=== PATIENT | female | born 2000 | race Caucasian/White ===

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

== ENCOUNTER 2021-10-04 17:30 | Outpatient (REF) | payer OTHER, SELFPAY ==
[2021-10-04 21:33] LABS: TSH 15.72 uIU/mL (0.52-4.13)
== END 2021-10-04 17:31 | disposition home or self-care (01) ==
LOC: NCHCN 17:30
PROVIDERS: PCP Family Medicine; Visit Provider Family Medicine
DX: E03.9 Hypothyroidism, unspecified (principal)
CPT/HCPCS: 84443

== ENCOUNTER 2022-11-30 16:23 | Outpatient (REF) | payer BC, SELFPAY ==
[2022-11-30 15:07] LABS: TSH 0.02 uIU/mL (0.36-3.74)
== END 2022-11-30 16:24 | disposition home or self-care (01) ==
LOC: NCHCN 16:23
PROVIDERS: PCP Family Medicine; Visit Provider Family Medicine
DX: E03.9 Hypothyroidism, unspecified (principal)
CPT/HCPCS: 84443

== ENCOUNTER 2023-03-29 16:37 | Outpatient (REF) | payer BC, SELFPAY ==
[2023-03-29 22:32] LABS: Anion Gap 11.7 mmol/L (3-11); BUN 32 mg/dL (7-18); CO2 25.3 mmol/L (21.0-32.0); CREATININE 1.1 mg/dL (0.70-1.30); Calcium 9.4 mg/dL (8.5-10.1); Calculated LDL 80 mg/dL (<100); Chloride 105 mmol/L (98-107); Cholesterol 160 mg/dL (<200); Estimated GFR 97.95 (mL/min/1.73m2); Glucose 94 mg/dL (74-106); HDL Cholesterol 66 mg/dL (40-60); Potassium 4.3 mmol/L (3.5-5.1); Sodium 142 mmol/L (136-145); TSH 0.39 uIU/mL (0.36-3.74); Triglyceride 73 mg/dL (<150)
== END 2023-03-29 16:38 | disposition home or self-care (01) ==
LOC: NCHCN 16:37
PROVIDERS: PCP Family Medicine; Visit Provider Family Medicine
DX: E78.00 Pure hypercholesterolemia, unspecified (principal); E03.9 Hypothyroidism, unspecified
CPT/HCPCS: 80048; 80061; 84443

== ENCOUNTER 2024-05-23 17:00 | Outpatient (REF) | payer BC, SELFPAY ==
--- OUTSIDE RECORDS SUMMARY | 2024-05-23 17:07 | XMS_ITS | Clinical Summary ---
Author Organization [facility] [place] [address] Care Team Providers Care Director Of Events Name Role Phone Unknown Primary Care Provider Unavailabl e Allergies No known active allergies Medications Medication Sig Dispensed Refills Start Date End Date Status pediatric multivitamin chewable tablet Take 1 tablet by mouth daily. Active levothyroxine (SYNTHROID) 150 mcg TabletIndications:Acqui red hypothyroidism Take 1 tablet by mouth daily. 90 tablet 3 11/25/2018 Active Active Problems Problem Noted Date Diagnosed Date Acquired hypothyroidism 09/19/2015 Overview (09/19/2015): Detected 09/15. Brother and father also have hypothyroidism. Assessment & Plan (08/30/2018 5:27 PM EST): Israel appears euthyroid on exam and I suspect his current dose of levothyroxine is adequate. We'll check his TSH today and adjust his dose as needed. I'll continue to follow him on an annual basis. 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 He gained 1.5kg over the past 8 months, and 6.8cm. He is now at the 18th percentile for height, moving in the right direction, and fell to the 20th percentile for weight. Most recent TSH elevated at 20.11. Not having any symptoms of hypo or hyperthyroidism. Levothyroxine dose change from 75 to 88 mcg, taking it 7 days a week. Plan to recheck on new thyroid dose after another 4 weeks. Assessment & Plan (09/19/2015 1:50 PM EST): Israel likely developed his hypothyroidism relatively slowly as he appears well adapted. His growth curve does show crossing of percentiles which is likely a consequence of the hypothyroidism. 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 With TSH levels that high, some people become symptomatic if you correct the hypothyroidism too rapidly. I therefore recommended that he take 1/2 tablet (25 mcg) levothyroxine for the first 2 weeks then progress to 50 mcg daily. He should have a TSH checked locally in 8 weeks, and I provided a standing order for that. I suggested that Israel come to his brother's visit next time so that I can check in briefly, but we will not plan for a formal appointment. 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 . Elevated DHEA-S Assessment & Plan (09/19/2015 1:45 PM EST): Israel is at a normal pubertal stage, so his early adrenarche did result in early puberty. We cannot project his final adult height without performing a bone age, but he is on normal growth centiles which is reassuring. Assessment & Plan (03/20/2013 5:02 PM EDT): Israel is an 12 year 4/12 month old with premature adrenarche first occuring at age 9. The adrenarche is stable over the past year, though he is showing signs of going through puberty with testicular enlargement. He is not showing signs of growth acceleration on growth chart, but we should obtain a repeat bone age and make sure it is not advanced. If he does not show signs of advanced bone age, there is no reason he needs to follow up with endocrinology but we are happy to see him again should parents or PCP desire. Assessment & Plan (03/19/2012 6:14 PM EDT): While the adrenarche has progressed, Israel is not showing any signs of penile enlargement or growth acceleration. He is more pinto, but I do not think that is the result of puberty. We will check a bone age today to be sure there has not been a loss in his adult height potential. Provided that study is normal, then I think the current conservative course is appropriate. We will plan to see him again in 1 year. 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 I am concerned however that he is showing testicular enlargement consistent with true precocious puberty. The pattern of high DHEAS with normal 17 hydroxyprogesterone could be seen in one of the unusual forms of congenital adrenal hyperplasia such as 3 beta HSD deficiency. We plan to perform a Cortrosyn stimulation test with a CAH profile 6 pre and post. We also obtained a bone age to gauge the change in skeletal maturation. Family History Medical History Relation Comments Thyroid Disease Brother Hypothyroidism Diabetes Father High Blood Pressure Father High Cholesterol Father Thyroid Disease Father Hypothyroidism Coronary Artery Disease Maternal Grandfather Hearing Loss Maternal Grandfather Heart Disease Maternal Grandfather High Blood Pressure Maternal Grandfather High Cholesterol Maternal Grandfather Obesity Maternal Grandfather Hearing Loss Paternal Grandfather Relation Status Comments Brother Alive Father Alive Maternal Grandfather Alive Maternal Grandmother Alive Mother Alive Paternal Grandfather Alive Paternal Grandmother Alive Social History Tobacco Use Types Packs/Day Years Used Date Smoking Tobacco: Never Smokeless Tobacco: Never Comments:no one smokes in ho use Sex and Gender Information Value Date Recorded Sex Assigned at Not on file Gender Identity Not on file Sexual Orientation Not on file Last Filed Vital Signs Vital Sign Reading Time Taken Comments Blood Pressure 141/73 08/24/2018 11:26 AM EST Pulse 78 08/24/2018 11:26 AM EST Temperature - - Respiratory Rate 20 04/25/2016 8:20 AM EDT Oxygen Saturation - - Inhaled Oxygen Concentration - - Weight 63.2 kg (139 lb 5.3 oz) 08/24/2018 11:26 AM EST Height 173.7 cm (5' 8.39) 08/24/2018 11:[address] Body Mass Index 20.95 08/24/2018 11:26 AM EST Plan of Treatment Health Maintenance Due Date Last Done Comments HPV vaccine (1 - Male 3-dose series) 2016 HIV screen 2019 Hepatitis C Screening 2019 Hepatitis B vaccine (0-59 yrs) (1) 2020 Tdap adult 2020 Tetanus vaccine 2020 Covid-19 Vaccine (1 - 2022- season) 2023 Influenza (Flu) vaccine (1 o f 1 - Influenza standard series) 06/02/2024 Care Teams Director Of Events Relationship Specialty Start Date End Date Unknown None PCP - General 10/02/18
--- OUTSIDE RECORDS SUMMARY | 2024-05-23 17:07 | XMS_ITS | Encounter Summary ---
Author Organization [facility] Address [facility] [place] [address] Care Team Providers Care Tripoler Name Role Phone Unknown Primary Care Provider Unavailabl e Encounter Details Date Type Department Care Team (Latest Contact Info) Description 02/07/2020 Orders Only [place] [address] Tyson Vega MD [facility] DR PEDIATRIC [place] [address] Acquired hypothyroidism Social History Tobacco Use Types Packs/Day Years Used Date Smoking Tobacco: Never Smokeless Tobacco: Never Comments:no one smokes in ho use Sex and Gender Information Value Date Recorded Sex Assigned at Not on file Gender Identity Not on file Sexual Orientation Not on file documented as of this encounter Plan of Treatment Not on file documented as of this encounter Visit Diagnoses Diagnosis Acquired hypothyroidism Unspecified hypothyroidism documented in this encounter Care Teams Tripoler Relationship Specialty Start Date End Date Unknown None PCP - General 10/02/18 documented as of this encounter
--- OUTSIDE RECORDS SUMMARY | 2024-05-23 17:07 | XMS_ITS | Encounter Summary ---
Author Organization [facility] [place] [address] Care Team Providers Care Newspaper Writer Name Role Phone Raza Lazar MD Primary Care Provider [phone] Reason for Visit * Reason Onset Date Comments Medication Refill 01/06/2017 Encounter Details Date Type Department Care Team (Late st Contact Info) Description 01/06/2017 Refill [place] [address] Tyson Vega MD [facility] DR P[place] [address] Acquired hypothyroidism Social History Tobacco Use Types Packs/Day Years Used Date Smoking Tobacco: Never Comments:no one smokes in ho use Sex and Gender Information Value Date Recorded Sex Assigned at Not on file Gender Identity Not on file Sexual Orientation Not on file documented as of this encounter Plan of Treatment Not on file documented as of this encounter Visit Diagnoses Diagnosis Acquired hypothyroidism Unspecified hypothyroidism documented in this encounter Care Teams Newspaper Writer Relationship Specialty Start Date End Date Raza Lazar MD PCP - General 03/19/12 10/01/18 documented as of this encounter
--- OUTSIDE RECORDS SUMMARY | 2024-05-23 17:07 | XMS_ITS | Encounter Summary ---
Author Organization [facility] Address [facility] [place] [address] Care Team Providers Care Rehabilitation Team Lead Name Role Phone Raza Lazar MD Primary Care Provider [phone] Encounter Details Date Type Department Care Team (Late st Contact Info) Description 09/03/2018 Telephone Pediatric [place] [address] Tyson Vega MD [facility] DR PEDIATRIC [place] [address] Social History Tobacco Use Types Packs/Day Years Used Date Smoking Tobacco: Never Smokeless Tobacco: Never Comments:no one smokes in ho use Sex and Gender Information Value Date Recorded Sex Assigned at Not on file Gender Identity Not on file Sexual Orientation Not on file documented as of this encounter Miscellaneous Notes * Telephone Encounter - Tyson Vega MD - 09/03/2018 8:11 AM EST Israel's TSH is elevated at 13. I recommend an increase to 137 mcg daily. Prescription sent. Lab slip sent.. Discussed with father by phone. documented in this encounter Plan of Treatment Not on file documented as of this encounter Visit Diagnoses Diagnosis Acquired hypothyroidism Unspecified hypothyroidism documented in this encounter Care Teams Rehabilitation Team Lead Relationship Specialty Start Date End Date Raza Lazar MD PCP - General 03/19/12 10/01/18 documented as of this encounter
--- OUTSIDE RECORDS SUMMARY | 2024-05-23 17:07 | XMS_ITS | Encounter Summary ---
Author Organization [facility] [place] [address] Care Team Providers Care Gas Meter Repairer Name Role Phone Raza Lazar MD Primary Care Provider [phone] Reason for Visit * Reason Onset Date Comments Follow-up 05/15/2013 bone age results Encounter Details Date Type Department Care Team (Late st Contact Info) Description 05/15/2013 Telephone [place] [address] Tess Burns APRN [facility] [address] [place] [address] Follow-up (bone age results) Social History Tobacco Use Types Packs/Day Years Used Date Smoking Tobacco: Never Comments:no one smokes in ho use Sex and Gender Information Value Date Recorded Sex Assigned at Not on file Gender Identity Not on file Sexual Orientation Not on file documented as of this encounter Miscellaneous Notes * Telephone Encounter - Tess Burns APRN - 05/15/2013 12:12 PM EDT Bone age reviewed and there has been no accelerated advancement. Bone age read 11-6/12 ths to 12-6/12 ths years. If I take the average of 12-years, then this yields a final height around 171.3 cm, 67.4 inches, falling within two standard deviations of the mid parental height. Message left at home. No further endocrine follow up needed. documented in this encounter Plan of Treatment Not on file documented as of this encounter Visit Diagnoses Not on filedocumented in this encounter Care Teams Gas Meter Repairer Relationship Specialty Start Date End Date Raza Lazar MD PCP - General 03/19/12 10/01/18 documented as of this encounter
--- OUTSIDE RECORDS SUMMARY | 2024-05-23 17:07 | XMS_ITS | Encounter Summary ---
Author Organization [facility] Address [facility] [place] [address] Care Team Providers Care M48 M60 Armor Crewman Name Role Phone Raza Lazar MD Primary Care Provider [phone] Encounter Details Date Type Department Care Team (Latest Contact Info) Description 07/13/2016 External Results Pediatric [place] [address] Tyson Vega MD [facility] DR PEDIATR[place] [address] Acquired hypothyroidism Social History Tobacco Use Types Packs/Day Years Used Date Smoking Tobacco: Never Comments:no one smokes in ho use Sex and Gender Information Value Date Recorded Sex Assigned at Not on file Gender Identity Not on file Sexual Orientation Not on file documented as of this encounter Plan of Treatment Not on file documented as of this encounter Procedures Procedure Name Priority Date/Time Associated Diagnosis Comments TSH Routine 06/18/2016 12:41 PM EDT Acquired hypothyroidism documented in this encounter Results * (ABNORMAL) TSH (06/18/2016 12:41 PM EDT) Thyroid Stimulating Hormone 4.77(Exter nal Lab) EXTERNAL LAB Comment:0.35-5.5 uIU/mL Blood specimen (specimen) 06/18/2016 12:41 PM EDT Tyson Vega MD CHEMISTRY ORDERABLES EXTERNAL LAB documented in this encounter Visit Diagnoses Diagnosis Acquired hypothyroidism Unspecified hypothyroidism documented in this encounter Care Teams M48 M60 Armor Crewman Relationship Specialty Start Date End Date Raza Lazar MD PCP - General 03/19/12 10/01/18 documented as of this encounter
--- OUTSIDE RECORDS SUMMARY | 2024-05-23 17:07 | XMS_ITS | Encounter Summary ---
Author Organization [facility] [place] [address] Care Team Providers Care Automobile Assembler Name Role Phone Raza Lazar MD Primary Care Provider [phone] Reason for Visit * Reason Onset Date Comments Medication Refill 07/14/2016 Encounter Details Date Type Department Care Team (Late st Contact Info) Description 07/14/2016 Refill [place] [address] Tyson Vega MD [facility] DR PEDIATRIC [place] [address] Acquired hypothyroidism Social History Tobacco Use Types [...] hypothyroidism documented in this encounter Care Teams Automobile Assembler Relationship Specialty Start Date End Date Raza Lazar MD PCP - General 03/19/12 10/01/18 documented as of this encounter
--- OUTSIDE RECORDS SUMMARY | 2024-05-23 17:07 | XMS_ITS | Encounter Summary ---
[place] [address] Care Team Providers Care Brim Flexer Name Role Phone Raza Lazar MD Primary Care Provider [phone] Encounter Details Date Type Department Care Team (Late st Contact Info) Description 12/01/2015 Telephone Pediatric [place] [address] Viviane Armijo, RN Social History Tobacco Use Types Packs/Day Years Used Date Smoking Tobacco: Never Comments:no one smokes in ho use Sex and Gender Information Value Date Recorded Sex Assigned at Not on file Gender Identity Not on file Sexual Orientation Not on file documented as of this encounter Miscellaneous Notes * Telephone Encounter - Viviane Armijo RN - 12/01/2015 8:17 AM EST Dose increase to 75 mcg levothyroxine. Message left on home phone and script sent to pharmacy. documented in this encounter Plan of Treatment Not on file documented as of this encounter Visit Diagnoses Not on filedocumented in this encounter Care Teams Brim Flexer Relationship Specialty Start Date End Date Raza Lazar MD PCP - General 03/19/12 10/01/18 documented as of this encounter
--- OUTSIDE RECORDS SUMMARY | 2024-05-23 17:07 | XMS_ITS | Encounter Summary ---
Author Organization [facility] Address [facility] [place] [address] Care Team Providers Care Lna Name Role Phone Raza Lazar MD Primary Care Provider [phone] Encounter Details Date Type Department Care Team (Latest Contact Info) Description 08/24/2018 11:30 AM EST Office Visit [place] [address] Tyson Vega MD [facility] DR PEDIATRIC [place] [address] Acquired hypothyroidism Social History Tobacco Use Types Packs/Day Years Used Date Smoking Tobacco: Never Smokeless Tobacco: Never Comments:no one smokes in ho use Sex and Gender Information Value Date Recorded Sex Assigned at Not on file Gender Identity Not on file Sexual Orientation Not on file documented as of this encounter Last Filed Vital Signs Vital Sign Reading Time Taken Comments Blood Pressure 141/73 08/24/2018 11:26 AM EST Pulse 78 08/24/2018 11:26 AM EST Temperature - - Respiratory Rate - - Oxygen Saturation - - Inhaled Oxygen Concentration - - Weight 63.2 kg (139 lb 5.3 oz) 08/24/20 18 11:26 AM EST Height 173.7 cm (5' 8.39) 08/24/2018 1 1:26 AM EST Body Mass Index 20.95 08/24/2018 11:26 AM EST Body Mass Index Percentile 48.56% 08/24 11:26 AM EST Growth Chart: CDC (Boys, 2-2 0 Years) documented in this encounter Progress Notes * Tyson Vega MD - 08/24/2018 11:30 AM EST Subjective: Patient ID: Israel Blanton is a 17 y.o. male. HPI Israel was first evaluated in 2010, when he presented with premature adrenarche. We recommended a conservative course and he did quite well. In 2014, he returned for evaluation of hypothyroidism. Hisolder brother and father also have hypothyroidism. He has done well with replacement therapy. Over the past year he feels his energy level has been good. He has no constipation or cold intolerance. He reports taking his levothyroxine regularly, rarely missing any doses. His general health has been excellent. Social History: In 11th grade now. Enjoys playing golf and hunting. Past Medical History, Surgical History, and Family History were reviewed and updated in the electronic record. Review of Systems Constitutional: Negative. HENT: Negative. Eyes: Negative. Respiratory: Negative. Cardiovascular: Negative. Gastrointestinal: Negative. Genitourinary: Negative. Musculoskeletal: Negative. Skin: Negative. Neurological: Negative. Psychiatric/Behavioral: Negative. Objective: Physical Exam Constitutional: He appears well-developed and well-nourished. No distress. HENT: Mouth/Throat: Oropharynx is clear and moist. Eyes: Pupils are equal, round, and reactive to light. No scleral icterus. Neck: No thyromegaly (The thyroid is no longer enlarged and I did not feel palpable nodules.) present. Cardiovascular: Normal rate and regular rhythm. No murmur heard. Pulmonary/Chest: Effort normal. He has no wheezes. Abdominal: Soft. He exhibits no mass. There is no tenderness. Musculoskeletal: He exhibits no edema. Lymphadenopathy: He has no cervical adenopathy. Neurological: He is alert. Skin: Skin is warm. No rash noted. Psychiatric: He has a normal mood and affect. His behavior is normal. BP 141/73 Pulse 78 Ht 173.7 cm (5' 8.39) Wt 63.2 kg (139 lb 5.3 oz) BMI 20.95 kg/m?? Assessment and Plan: Acquired hypothyroidism Israel appears euthyroid on exam and I suspect his current dose of levothyroxine is adequate. We'llcheck his TSH today and adjust his dose as needed. I'll continue to follow him on an annual basis. documented in this encounter Miscellaneous Notes * Assessment & Plan Note - Tyson Vega MD - 08/30/2018 5:23 PM EST Associated Problem(s): Acquired hypothyroidism Israel appears euthyroid on exam and I suspect his current dose of levothyroxine is adequate. We'llcheck his TSH today and adjust his dose as needed. I'll continue to follow him on an annual basis. documented in this encounter Plan of Treatment Not on file documented as of this encounter Procedures Procedure Name Priority Date/Time Associated Diagnosis Comments TSH Routine 08/24/2018 12:16 PM EST Acquired hypothyroidism documented in this encounter Results * (ABNORMAL) TSH (08/24/2018 12:16 PM EST) Thyroid Stimulating Hormone 13.67(H) 0.27 - 4.20 mlU/ML [facility] Blood specimen (specimen) 08/24/2018 12:16 PM EST 08/24/2018 12:21 PM EST Narrative Resulting Agency Comment Spec In Lab Tyson Vega MD CHEMISTRY ORDERABLES Performing Organization Address City/State/[facility] Co de Phone Number [facility] [place] [address] documented in this encounter Visit Diagnoses Diagnosis Acquired hypothyroidism Unspecified hypothyroidism documented in this encounter Care Teams Lna Relationship Specialty Start Date End Date Raza Lazar MD PCP - General 03/19/12 10/01/18 documented as of this encounter
--- OUTSIDE RECORDS SUMMARY | 2024-05-23 17:07 | XMS_ITS | Encounter Summary ---
Author Organization [facility] [place] [address] Care Team Providers Care Terrapin Fisher Name Role Phone Raza Lazar MD Primary Care Provider [phone] Reason for Visit * Reason Onset Date Comments Medication Refill 04/12/2016 Encounter Details Date Type Department Care Team (Late st Contact Info) Description 04/12/2016 Refill [place] [address] Berkley Shea APRN [facility] DR PEDIATR[place] [address] Social History Tobacco Use Types Packs/Day Years Used Date Smoking Tobacco: Never Comments:no one smokes in ho use Sex and Gender Information Value Date Recorded Sex Assigned at Not on file Gender Identity Not on file Sexual Orientation Not on file documented as of this encounter Miscellaneous Notes * Telephone Encounter - Berkley Shea APRN - 04/12/2016 1:16 PM EDT TSH is elevated at 20.14 Reviewed with mother who notes he is consistent with his medication. Plan: Increase to 88 mcg per day Follow up labs in 6 weeks at his next apt. With Dr. Vega. documented in this encounter Plan of Treatment Not on file documented as of this encounter Visit Diagnoses Not on filedocumented in this encounter Care Teams Terrapin Fisher Relationship Specialty Start Date End Date Raza Lazar MD PCP - General 03/19/12 10/01/18 documented as of this encounter
--- OUTSIDE RECORDS SUMMARY | 2024-05-23 17:07 | XMS_ITS | Encounter Summary ---
Author Organization [facility] Address [facility] [place] [address] Care Team Providers Care Log Cut Off Sawyer Name Role Phone Raza Lazar MD Primary Care Provider [phone] Reason for Visit * Reason Comments Premature Adrenarche * Consultation (Routine) - Closed Specialty Diagnoses / Procedures Referred By Contanselmo t Referred To Contact Pediatric Endocrinology Diagnoses F/U DECREASED GROWTH VELOCITY H/O PREMATURE ADRENARCHE Raza Lazar MD [address] [place] [address] Tyson Vega MD [facility] [place]EDI[place] [address] Referral ID Status Reason Start Date Expiration Date V isits Requested Visits Authorized [id number] Closed Consult & Test Connection Center 08/20/2015 08/19/2016 1 1 Encounter Details Date Type Department Care Team (Latest Contact Info) Description 09/14/2015 2:30 PM EST Office Visit [place] [address] Tyson Vega MD [facility] [place] [address] Acquired hypothyroidism; Premature adrenarche Social History Tobacco Use Types Packs/Day Years Used Date Smoking Tobacco: Never Comments:no one smokes in ho use Sex and Gender Information Value Date Recorded Sex Assigned at Not on file Gender Identity Not on file Sexual Orientation Not on file documented as of this encounter Last Filed Vital Signs Vital Sign Reading Time Taken Comments Blood Pressure 105/70 09/14/2015 2:24 PM EST Pulse 69 09/14/2015 2:24 PM EST Temperature - - Respiratory Rate - - Oxygen Saturation - - Inhaled Oxygen Concentration - - Weight 44.5 kg (98 lb 1.7 oz) 09/14/2015 2:24 PM EST Height 152.7 cm (5' 0.12) 09/14/2015 2:24 PM ES T Body Mass Index 19.08 09/14/2015 2:24 PM EST Body Mass Index Percentile 51.23% 09/14/2015 2:2 4 PM EST Growth Chart: [facility] (Boys, 2-2 0 Years) documented in this encounter Patient Instructions * Patient Instructions* Tyson Vega MD - 09/14/2015 3:48 PM EST Please take 1/2 tablet levothyroxine (25 mcg) daily for the first 2 weeks. Then take whole tablet (50 mcg) daily. Please check TSH in 8 weeks. documented in this encounter Progress Notes * Tyson Vega MD - 09/19/2015 1:50 PM EST Subjective: Patient ID: Israel Blanton is a 14 y.o. male. PARKER Yina is here with both parents for consultation regarding hypothyroidism, at the request of Dr. Raza Lazar. I first evaluated Israel in 2010, when he presented with premature adrenarche. Werecommended a conservative course and he's done quite well. He has not had a voice change, but bodyodor is prominent. He has not had rapid growth and has actually dropped in height percentiles. Israel's older brother, Slick, was also diagnosed with hypothyroidism. Because of that history and the slowing of growth, Dr. Lazar obtain TFTs. I don't have the exact values but parents recall that the TSH was in the 90's. He has not yet started treatment. He has not had constipation or cold intolerance. Israel's father also has hypothyroidism. Social History: In 8th grade. Enjoys hunting, basketball, soccer and skiing. Past Medical History, Surgical History, and Family [...] reactive to light. No scleral icterus. Neck: Thyromegaly (The thyroid is easily palpable and only slightly larger than normal, but has a bosselated texture.) present. Cardiovascular: Normal rate and regular rhythm. No murmur heard. Pulmonary/Chest: Effort normal. He has no wheezes. Abdominal: Soft. He exhibits no mass. There is no tenderness. Genitourinary: Penis normal. Lenard 3 pubic hair. Testes 8 mL bilaterally, Lenard 3. Musculoskeletal: He exhibits no edema. Lymphadenopathy: He has no cervical adenopathy. Neurological: He is alert. Skin: Skin is warm. No rash noted. Psychiatric: He has a normal mood and affect. His behavior is normal. BP 105/70 mmHg Pulse 69 Ht 152.7 cm (5' 0.12) Wt 44.5 kg (98 lb 1.7 oz) BMI 19.08 kg/m2 Assessment and Plan: Premature adrenarche Israel is at a normal pubertal stage, so his early adrenarche did result in early puberty. We cannot project his final adult height without performing a bone age, but he is on normal growth centiles which is reassuring. Acquired hypothyroidism Israel likely developed his hypothyroidism relatively slowly as he appears well adapted. His growthcurve does show crossing of percentiles which is [...] first 2 weeks then progress to 50 mcgdaily. He should have a TSH checked locally in 8 weeks, and I provided a standing order for that. Isuggested that Israel come to his brother's visit next time so that I can check in briefly, but we will not plan for a formal appointment. documented in this encounter Miscellaneous Notes * Assessment & Plan Note - Tyson Vega MD - 09/19/2015 1:50 PM EST Associated Problem(s): Acquired hypothyroidism Israel likely developed his hypothyroidism relatively slowly as he appears well adapted. His growthcurve does show crossing of percentiles which is [...] first 2 weeks then progress to 50 mcgdaily. He should have a TSH checked locally in 8 weeks, and I provided a standing order for that. Isuggested that Israel come to his brother's visit next time so that I can check in briefly, but we will not plan for a formal appointment. * Assessment & Plan Note - Tyson Vega MD - 09/19/2015 1:45 PM EST Associated Problem(s): Premature adrenarche (Resolved 09/19/2015) Israel is at a normal pubertal stage, so his early adrenarche did result in early puberty. We cannot project his final adult height without performing a bone age, but he is on normal growth centiles which is reassuring. 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
--- OUTSIDE RECORDS SUMMARY | 2024-05-23 17:07 | XMS_ITS | Encounter Summary ---
[place] [address] Care Team Providers Care Electronic Plotting System Operator Name Role Phone Raza Lazar MD Primary Care Provider [phone] Reason for Visit * Reason Onset Date Comments Medication Refill 11/26/2015 Encounter Details Date Type Department Care Team (Late st Contact Info) Description 11/26/2015 Refill [place] [address] Viviane Armijo RN Acquired hypothyroidism Social History Tobacco Use Types Packs/Day Years Used Date Smoking Tobacco: Never Comments:no one smokes in ho use Sex and Gender Information Value Date Recorded Sex Assigned at Not on file Gender Identity Not on file Sexual Orientation Not on file documented as of this encounter Miscellaneous Notes * Telephone Encounter - Viviane Armijo RN - 11/26/2015 5:01 PM EST Message left on home phone about dose increase to 75 mcg levothyroxine and need for repeat labs in 4-6 weeks. documented in this encounter Plan of Treatment Not on file documented as of this encounter Visit Diagnoses Diagnosis Acquired hypothyroidism Unspecified hypothyroidism documented in this encounter Care Teams Electronic Plotting System Operator Relationship Specialty Start Date End Date Raza Lazar MD PCP - General 03/19/12 10/01/18 documented as of this encounter
--- OUTSIDE RECORDS SUMMARY | 2024-05-23 17:07 | XMS_ITS | Encounter Summary ---
Author Organization [facility] [place] [address] Care Team Providers Care Hearing Aid Technician Name Role Phone Unknown Primary Care Provider Unavailabl e Encounter Details Date Type Department Care Team (Late st Contact Info) Description 11/21/2018 Telephone Pediatric [place] [phone] Maria Teresa Lerma RN Social History Tobacco Use Types Packs/Day Years Used Date Smoking Tobacco: Never Smokeless Tobacco: Never Comments:no one smokes in ho use Sex and Gender Information Value Date Recorded Sex Assigned at Not on file Gender Identity Not on file Sexual Orientation Not on file documented as of this encounter Miscellaneous Notes * Telephone Encounter - Maria Teresa Archuleta RN - 11/21/2018 11:27 AM EST Spoke with mom, she's aware that we've received the results, and what the number is. She's aware that we are awaiting interpretation by Dr. Vega. Will await that call. She did report that he's very good about taking his medication every day. * Telephone Encounter - Maria Teresa Archuleta RN - 11/21/2018 11:27 AM EST ----- Message from Luciana Isaac sent at 11/19/2018 3:53 PM EST ----- Mom was calling because she wanted to know if we received his lab results. They were drawn at [facility] in [place], [place]. She can be reached at [phone]. documented in this encounter Plan of Treatment Not on file documented as of this encounter Visit Diagnoses Not on filedocumented in this encounter Care Teams Hearing Aid Technician Relationship Specialty Start Date End Date Unknown None PCP - General 10/02/18 documented as of this encounter
--- OUTSIDE RECORDS SUMMARY | 2024-05-23 17:07 | XMS_ITS | Encounter Summary ---
Author Organization [facility] [place] [place] [address] Care Team Providers Care Felt Puller Name Role Phone Unknown Primary Care Provider Unavailabl e Encounter Details Date Type Department Care Team (Latest Contact Info) Description 03/05/2020 External Results [place] [phone] Maria Teresa Lerma RN Acquired hypothyroidism Social History Tobacco Use [...] Priority Date/Time Associated Diagnosis Comments TSH Routine 01/16/2020 1:25 PM EDT Acquired hypothyroidism documented in this encounter Results * (ABNORMAL) TSH (01/16/2020 1:25 PM EDT) Thyroid Stimulating Hormone 5.43(ExtH) 0.52 - 4.13 uIU/mL EXTERNAL LAB Blood specimen (specimen) 01/16/2020 1:25 PM EDT Tyson Vega MD CHEMISTRY ORDERABLES EXTERNAL LAB documented in this encounter Visit Diagnoses Diagnosis Acquired hypothyroidism Unspecified hypothyroidism documented in this encounter Care Teams Felt Puller Relationship Specialty Start Date End Date Unknown None PCP - General 10/02/18 documented as of this encounter
--- OUTSIDE RECORDS SUMMARY | 2024-05-23 17:07 | XMS_ITS | Encounter Summary ---
[place] [address] Care Team Providers Care Linoleum Layer Helper Name Role Phone Raza Lazar MD Primary Care Provider [phone] Encounter Details Date Type Department Care Team (Latest Contact Info) Description 01/18/2017 Orders Only [place] [address] Viviane Armijo, RN Acquired hypothyroidism Social History Tobacco Use [...] hypothyroidism documented in this encounter Care Teams Linoleum Layer Helper Relationship Specialty Start Date End Date Raza Lazar MD PCP - General 03/19/12 10/01/18 documented as of this encounter
--- OUTSIDE RECORDS SUMMARY | 2024-05-23 17:07 | XMS_ITS | Encounter Summary ---
Author Organization [facility] [place] [address] Care Team Providers Care Rouge Sifter Name Role Phone Raza Lazar MD Primary Care Provider [phone] Encounter Details Date Type Department Care Team (Latest Contact Info) Description 04/15/2016 External Results Pediatric [place] [address] Berkley Shea APRN [facility] DR PEDIATRIC [place] [address] Acquired hypothyroidism Social History Tobacco Use Types [...] Priority Date/Time Associated Diagnosis Comments TSH Routine 04/11/2016 10:42 AM EDT Acquired hypothyroidism documented in this encounter Results * (ABNORMAL) TSH (04/11/2016 10:42 AM EDT) Thyroid Stimulating Hormone 20.14(EXTE RNAL/ABN) EXTERNAL LAB Comment:0.35-5.5 uIU/mL Blood specimen (specimen) 04/11/2016 10:42 AM EDT Tyson Vega MD CHEMISTRY ORDERABLES EXTERNAL LAB documented in this encounter Visit Diagnoses Diagnosis Acquired hypothyroidism Unspecified hypothyroidism documented in this encounter Care Teams Rouge Sifter Relationship Specialty Start Date End Date Raza Lazar MD PCP - General 03/19/12 10/01/18 documented as of this encounter
--- OUTSIDE RECORDS SUMMARY | 2024-05-23 17:07 | XMS_ITS | Encounter Summary ---
Author Organization [facility] Address [facility] [place] [address] Care Team Providers Care Corn Sheller Operator Name Role Phone Raza Lazar MD Primary Care Provider [phone] Encounter Details Date Type Department Care Team (Latest Contact Info) Description 03/20/2013 4:56 PM EDT - 03/20/2013 11:59 PM EDT Hospital Encounter XRay at [address] [place] [address] CLINIC, Tyson Jones MD [facility] [place] [address] Premature adrenarche Discharge Disposition: Home Social History Tobacco Use Types Packs/Day Years Used Date Smoking Tobacco: Never Comments:no one smokes in ho use Sex and Gender Information Value Date Recorded Sex Assigned at Not on file Gender Identity Not on file Sexual Orientation Not on file documented as of this encounter Medications at Time of Discharge Medication Sig Dispensed Refills Start Date End Date pediatric multivitamin chewable tablet Take 1 tablet by mouth daily. documented as of this encounter Plan of Treatment Not on file documented as of this encounter Procedures Procedure Name Priority Date/Time Associated Diagnosis Comments XR BONE AGE Routine 03/20/2013 5:01 PM EDT Precocious sexual development and puberty, not elsewhere classified documented in this encounter Results * XR bone age (03/20/2013 5:01 PM EDT) Anatomical Region Laterality Modality N/A Radiographic Tete ging 03/20/2013 5:01 PM EDT Narrative 03/20/2013 6:07 PM EDT Examination BONE AGE Clinical History premature adrenarche Comparison 03/19/2012. Technique Single frontal view left hand. Findings According to the standards of Greulich and Kiara, skeletal age is approximately 11 years and 6 months, + / -10 months. The chronologic age is 12 years and 4 months ?? Impression The patient's bone age is approximately 12 years and 6 months, showing appropriate interval skeletal maturation. Procedure Note Master Nichols MD - 03/20/2013 Examination BONE AGE Clinical History premature adrenarche Comparison 03/19/2012. Technique Single frontal view left hand. Findings According to the standards of Greulich and Kiara, skeletal age isapproximately 12 years and 6 months, + / -10 months. The chronologic age is 12 years and4 months Impression The patient's bone age is approximately 12 years and 6 months, showing appropriate interval skeletal maturation. 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
--- OUTSIDE RECORDS SUMMARY | 2024-05-23 17:07 | XMS_ITS | Encounter Summary ---
Author Organization [facility] [place] [address] Care Team Providers Care Steam Pipe Fitter Name Role Phone Raza Lazar MD Primary Care Provider [phone] Reason for Visit * Reason Comments Medication Refill Encounter Details Date Type Department Care Team (Late st Contact Info) Description 02/29/2016 Refill Pediatric [place] [address] Tyson Vega MD [facility] DR PEDIATR[place] [address] Acquired hypothyroidism Social History Tobacco Use Types [...] hypothyroidism documented in this encounter Care Teams Steam Pipe Fitter Relationship Specialty Start Date End Date Raza Lazar MD PCP - General 03/19/12 10/01/18 documented as of this encounter
--- OUTSIDE RECORDS SUMMARY | 2024-05-23 17:07 | XMS_ITS | Encounter Summary ---
Author Organization [facility] [place] [address] Care Team Providers Care Base Cloth Inspector Name Role Phone Unknown Primary Care Provider Unavailabl e Encounter Details Date Type Department Care Team (Latest Contact Info) Description 11/12/2018 External Results Pediatric [place] [phone] Maria Teresa Lerma RN Acquired hypothyroidism Social [...] Priority Date/Time Associated Diagnosis Comments TSH Routine 11/10/2018 10:58 AM EST Acquired hypothyroidism documented in this encounter Results * (ABNORMAL) TSH (11/10/2018 10:58 AM EST) Thyroid Stimulating Hormone 6.26(ExtH) 0.46 - 4.68 uIU/mL EXTERNAL LAB Blood specimen (specimen) 11/10/2018 10:58 AM EST Tyson Vega MD CHEMISTRY ORDERABLES EXTERNAL LAB documented in this encounter Visit Diagnoses Diagnosis Acquired hypothyroidism Unspecified hypothyroidism documented in this encounter Care Teams Base Cloth Inspector Relationship Specialty Start Date End Date Unknown None PCP - General 10/02/18 documented as of this encounter
--- OUTSIDE RECORDS SUMMARY | 2024-05-23 17:07 | XMS_ITS | Encounter Summary ---
Author Organization [facility] [place] [address] Care Team Providers Care Career Center Advisor Name Role Phone Raza Lazar MD Primary Care Provider [phone] Encounter Details Date Type Department Care Team (Late st Contact Info) Description 03/15/2016 Telephone [place] [address] Viviane Armijo RN Social History Tobacco Use Types Packs/Day Years Used Date Smoking Tobacco: Never Comments:no one smokes in ho use Sex and Gender Information Value Date Recorded Sex Assigned at Not on file Gender Identity Not on file Sexual Orientation Not on file documented as of this encounter Miscellaneous Notes * Telephone Encounter - Viviane Armijo RN - 03/15/2016 2:24 PM EDT Spoke with mother to confirm that Israel is on 75 mcg of levothyroxine and that she intends to get follow-up labs next week. He has a follow-up appointment with Dr. Vega on April 25. documented in this encounter Plan of Treatment Not on file documented as of this encounter Visit Diagnoses Not on filedocumented in this encounter Care Teams Career Center Advisor Relationship Specialty Start Date End Date Raza Lazar MD PCP - General 03/19/12 10/01/18 documented as of this encounter
--- OUTSIDE RECORDS SUMMARY | 2024-05-23 17:07 | XMS_ITS | Encounter Summary ---
Author Organization [facility] [place] [address] Care Team Providers Care Tire Fabric Impregnating Range Tender Name Role Phone Unknown Primary Care Provider Unavailabl e Encounter Details Date Type Department Care Team (Late st Contact Info) Description 01/06/2019 Telephone Pediatric [place] [address] Tyson Vega MD [facility] DR PEDIATRIC [place] [address] Social History Tobacco Use Types Packs/Day Years Used Date Smoking Tobacco: Never Smokeless Tobacco: Never Comments:no one smokes in ho use Sex and Gender Information Value Date Recorded Sex Assigned at Not on file Gender Identity Not on file Sexual Orientation Not on file documented as of this encounter Miscellaneous Notes * Telephone Encounter - Tyson Vega MD - 01/06/2019 12:26 PM EDT Maria Teresa, there was an active standing order written in September. I entered another with the current date. Thanks Ramin ----- Message from Maria Teresa Archuleta RN sent at 01/03/2019 9:41 AM EDT ----- Regarding: Standing lab order needed Hospital requesting renewal of standing lab order for TSH. documented in this encounter Plan of Treatment Not on file documented as of this encounter Visit Diagnoses Diagnosis Acquired hypothyroidism Unspecified hypothyroidism documented in this encounter Care Teams Tire Fabric Impregnating Range Tender Relationship Specialty Start Date End Date Unknown None PCP - General 10/02/18 documented as of this encounter
--- OUTSIDE RECORDS SUMMARY | 2024-05-23 17:07 | XMS_ITS | Encounter Summary ---
Author Organization [facility] [place] [address] Care Team Providers Care Carpenter Helper Name Role Phone Unknown Primary Care Provider Unavailabl e Encounter Details Date Type Department Care Team (Late st Contact Info) Description 10/23/2018 Telephone Pediatric [place] [phone] Maria Teresa Lerma RN Social History Tobacco [...] Encounter - Maria Teresa Archuleta RN - 10/23/2018 9:43 AM EST Left message with Israel re: labwork needs to be redrawn. * Telephone Encounter - Maria Teresa Archuleta RN - 10/23/2018 9:43 AM EST ----- Message from Tyson Vega MD sent at 09/03/2018 8:22 AM EST ----- Regarding: Follow up TSH Follow up post dose change documented in this encounter Plan of Treatment Not on file documented as of this encounter Visit Diagnoses Not on filedocumented in this encounter Care Teams Carpenter Helper Relationship Specialty Start Date End Date Unknown None PCP - General 10/02/18 documented as of this encounter
--- OUTSIDE RECORDS SUMMARY | 2024-05-23 17:07 | XMS_ITS | Encounter Summary ---
Author Organization [facility] Address [facility] [place] [address] Care Team Providers Care Public Health Engineer Name Role Phone Raza Lazar MD Primary Care Provider [phone] Reason for Visit * Reason Comments Premature Adrenarche Encounter Details Date Type Department Care Team (Latest Contact Info) Description 03/20/2013 4:20 PM EDT Office Visit [place] [address] Tyson Vega MD [facility] DR [place] [address] Premature adrenarche (Primary Dx) Discharge Disposition: Home Social History Tobacco Use Types Packs/Day Years Used Date Smoking Tobacco: Never Comments:no one smokes in ho use Sex and Gender Information Value Date Recorded Sex Assigned at Not on file Gender Identity Not on file Sexual Orientation Not on file documented as of this encounter Last Filed Vital Signs Vital Sign Reading Time Taken Comments Blood Pressure 107/58 03/20/2013 4:10 PM EDT Pulse 75 03/20/2013 4:10 PM EDT Temperature - - Respiratory Rate - - Oxygen Saturation - - Inhaled Oxygen Concentration - - Weight 40.5 kg (89 lb 4.6 oz) 03/20/2013 4:10 PM EDT Height 142.9 cm (4' 8.26) 03/20/2013 4:10 PM ED T Body Mass Index 19.83 03/20/2013 4:10 PM EDT Body Mass Index Percentile 80.94% 03/20/2013 4:1 0 PM EDT Growth Chart: CDC (Boys, 2-2 0 Years) documented in this encounter Progress Notes * Miranda Gillis - 03/20/2013 4:13 PM EDT Subjective: Patient ID: Israel Blanton is a 12 y.o. male. PARKER Wood is here with both parents for follow up of premature adrenarche with elevated adrenal androgens. 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 We recommended simple observation. His bone age at 11y 4/12 monthswas between 10-11 years of age. His brother is 15 months older and they both have the same personality, still on the pinto side. They haven't noticed much of a growth spurt but he has needed new shoes in the past 6 months, and has neededto get longer pants. In the interval, the parents have noticed a little hair over his lip but no other pubertal progression. He has adult body odor, wears deodorant, but only has a few, fine axillary hairs. General health remains excellent. Social history: Lives with both parents. Entering 6th grade in the fall. Very active in golf, soccer, dirt-biking and outdoor sports. Doing soccer camp this summer. Will continue to do a lot of golf (daily). Review of Systems Constitutional: Negative. HENT: Negative. Eyes: Negative. Respiratory: Negative. Cardiovascular: Negative. Gastrointestinal: Negative. Genitourinary: Negative. Musculoskeletal: Negative. Skin: Negative. Keratosis pilaris Neurological: Negative. Hematological: Negative. Psychiatric/Behavioral: Negative. Objective: Physical Exam Constitutional: He appears well-developed and well-nourished. No distress. HENT: Mouth/Throat: Oropharynx is clear. Eyes: Conjunctivae normal are normal. Neck: Thyroid normal. No adenopathy. Cardiovascular: Normal rate and regular rhythm. No murmur heard. Pulmonary/Chest: Effort normal and breath sounds normal. There is normal air entry. Abdominal: Soft. There is no hepatosplenomegaly. There is no tenderness. Genitourinary: Penis normal. Lenard 3 pubic hair, long dark and curly. Lenard 2 Testicles 6 ml in volume, no abnormal masses. Musculoskeletal: He exhibits no edema. Neurological: He is alert. Skin: Skin is warm. No rash noted. BP 107/58 Pulse 75 Ht 142.9 cm (4' 8.26) Wt 40.5 kg (89 lb 4.6 oz) BMI 19.83 kg/m2 Up 5.2cm in the past year. 03/19/12: bone age per Tess Burns: Bone age reviewed and there has been no accelerated advancement.Read as bone age 10-11 years, chronological age 10- 01/11s years, yielding final height around 68 inches. Left message on home answering machine. Assessment and Plan: Premature adrenarche Israel is an 12 year 4/12 month old with premature adrenarche first occuring at age 9. The adrenarche is stable over the past year, though he is showing signs of going through puberty with testicularenlargement. He is not showing signs of growth acceleration on growth chart, but we should obtain arepeat bone age and make sure it is not advanced. If he does not show signs of advanced bone age, th ere is no reason he needs to follow up with endocrinology but we are happy to see him again should parents or PCP desire. MIRANDA GILLIS MD PGY-3 I personally evaluated the patient, and confirmed the physical findings and history recorded above by Dr. Gillis. I developed the medical plan and discussed this with the parents. My clinical impression is that he has not progressed as quickly as we had feared, and there may be no need to intervene given that his pubertal development is now appropriate for age. documented in this encounter Miscellaneous Notes * Assessment & Plan Note - Miranda Gillis - 03/20/2013 5:02 PM EDTAssociated Problem(s): Premature adrenarche (Resolved 09/19/2015) Israel is an 12 year 4/12 month old with premature adrenarche first occuring at age 9. The adrenarche is stable over the past year, though he is showing signs of going through puberty with testicularenlargement. He is not showing signs of growth acceleration on growth chart, but we should obtain arepeat bone age and make sure it is not advanced. If he does not show signs of advanced bone age, th ere is no reason he needs to follow up with endocrinology but we are happy to see him again should parents or PCP desire. documented in this encounter Plan of Treatment Not on file documented as of this encounter Visit Diagnoses Diagnosis Premature adrenarche- Primary Precocious sexual development and puberty, not elsewhere classified documented in this encounter Care Teams Public Health Engineer Relationship Specialty Start Date End Date Raza Lazar MD PCP - General 03/19/12 10/01/18 documented as of this encounter
--- OUTSIDE RECORDS SUMMARY | 2024-05-23 17:07 | XMS_ITS | Encounter Summary ---
[place] [address] Care Team Providers Care Make Up Editor Name Role Phone Raza Lazar MD Primary Care Provider [phone] Encounter Details Date Type Department Care Team (Latest Contact Info) Description 06/14/2016 Orders Only [place] [address] Viviane Armijo, RN Acquired hypothyroidism Social History [...] hypothyroidism documented in this encounter Care Teams Make Up Editor Relationship Specialty Start Date End Date Raza Lazar MD PCP - General 03/19/12 10/01/18 documented as of this encounter
--- OUTSIDE RECORDS SUMMARY | 2024-05-23 17:07 | XMS_ITS | Encounter Summary ---
Author Organization [facility] Address [facility] [place] [address] Care Team Providers Care Zigzag Tunnel Elastic Operator Name Role Phone Raza Lazar MD Primary Care Provider [phone] Encounter Details Date Type Department Care Team (Latest Contact Info) Description 01/25/2016 External Results Pediatrics at [address] [address] Tyson Vega MD [facility] PEDIATRIC [place] [address] Acquired hypothyroidism Social History Tobacco Use Types [...] Procedure Name Priority Date/Time Associated Diagnosis Comments EXTERNAL LAB RESULTS Routine 01/09/2016 11:50 AM EDT TSH Routine 01/09/2016 11:50 AM EDT Acquired hypothyroidism documented in this encounter Results * (ABNORMAL) External Lab Results (01/09/2016 11:50 AM EDT) T4 Total 7(External Lab) EXTERNAL LAB Comment:4.5-10.9 ug/dl Blood specimen (specimen) 01/09/2016 11:50 AM EDT Physician External CHEMISTRY ORDERABLES EXTERNAL LAB * (ABNORMAL) TSH (01/09/2016 11:50 AM EDT) Thyroid Stimulating Hormone 6.79(EXTER NAL/ABN) EXTERNAL LAB Comment:0.35-5.5 uIU/ml Blood specimen (specimen) 01/09/2016 11:50 AM EDT Tyson Vega MD CHEMISTRY ORDERABLES EXTERNAL LAB documented in this encounter Visit Diagnoses Diagnosis Acquired hypothyroidism Unspecified hypothyroidism documented in this encounter Care Teams Zigzag Tunnel Elastic Operator Relationship Specialty Start Date End Date Raza Lazar MD PCP - General 03/19/12 10/01/18 documented as of this encounter
--- OUTSIDE RECORDS SUMMARY | 2024-05-23 17:07 | XMS_ITS | Encounter Summary ---
Author Organization [facility] Address [facility] [place] [address] Care Team Providers Care Veterans Service Officer Name Role Phone Raza Lazar MD Primary Care Provider [phone] Reason for Visit * Reason Comments Hypothyroidism Encounter Details Date Type Department Care Team (Latest Contact Info) Description 04/25/2016 8:30 AM EDT Office Visit [place] [address] Ramon Cruz MD [facility] DR PEDIATRIC [place] [address] Acquired hypothyroidism Social History Tobacco Use Types Packs/Day Years Used Date Smoking Tobacco: Never Comments:no one smokes in ho use Sex and Gender Information Value Date Recorded Sex Assigned at Not on file Gender Identity Not on file Sexual Orientation Not on file documented as of this encounter Last Filed Vital Signs Vital Sign Reading Time Taken Comments Blood Pressure 118/62 04/25/2016 8:20 AM EDT Pulse 69 04/25/2016 8:20 AM EDT Temperature - - Respiratory Rate 20 04/25/2016 8:20 AM EDT Oxygen Saturation - - Inhaled Oxygen Concentration - - Weight 46 kg (101 lb 6.6 oz) 04/25/2016 8:20 AM EDT Height 159.5 cm (5' 2.8) 04/25/2016 8:20 AM EDT Body Mass Index 18.08 04/25/2016 8:20 AM EDT Body Mass Index Percentile 28.26% 04/25/2016 8:2 0 AM EDT Growth Chart: CDC (Boys, 2-2 0 Years) documented in this encounter Progress Notes * BraydenAmitaAnibal J - 04/25/2016 8:30 AM EDT Subjective: Patient ID: Israel Blanton is a 15 y.o. male. PARKER Wood originally presented for consultation regarding hypothyroidism at the request of Dr. Cunningham. He was first evaluated in 2010, when he presented with premature adrenarche. We recommendeda conservative course and he's done quite well. He has not had a voice change, but body odor is prominent. He has not had rapid growth, but height percentiles finally trending up. Israel's older brother, Slick, and his father also have hypothyroidism. Because of that history and the slowing of growth TSH was checked and found to be elevated. He has not had constipation or cold intolerance. Now on levothyroxine. Social History: About to start 9th grade. Enjoys hunting, basketball, soccer and skiing. [...] and affect. His behavior is normal. BP 118/62 Pulse 69 Resp 20 Ht 159.5 cm (5' 2.8) Wt 46 kg (101 lb 6.6 oz) BMI 18.08 kg/m2 Assessment and Plan: Acquired hypothyroidism Israel most likely has autoimmune hypothyroidism given [...] 20.11. Not having any symptoms of hypo orhyperthyroidism. Levothyroxine dose change from 75 to 88 mcg, taking it 7 days a week. Plan to recheck on new thyroid dose after another 4 weeks. I personally evaluated the patient, and confirmed the physical findings and history recorded above by Dr. Owen. I developed the medical plan and discussed this with Israel and his mother. My clinical impression is that he has uncomplicated acquired hypothyroidism which has progressed, requiring the recent dose adjustment. 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 Not having any symptoms of hypo orhyperthyroidism. Levothyroxine dose change from 75 to 88 mcg, taking it 7 days a week. Plan to recheck on new thyroid dose after another 4 weeks. documented in this encounter Plan of Treatment Not on file documented as of this encounter Visit Diagnoses Diagnosis Acquired hypothyroidism Unspecified hypothyroidism documented in this encounter Care Teams Veterans Service Officer Relationship Specialty Start Date End Date Raza Lazar MD PCP - General 03/19/12 10/01/18 documented as of this encounter
--- OUTSIDE RECORDS SUMMARY | 2024-05-23 17:07 | XMS_ITS | Encounter Summary ---
Author Organization [facility] Address [facility] [place] [address] Care Team Providers Care Swimming Pool Servicer Name Role Phone Raza Lazar MD Primary Care Provider [phone] Encounter Details Date Type Department Care Team (Latest Contact Info) Description 11/30/2015 External Results Pediatrics at [address] [address] [facility] [address] PEDIATR[place] [address] Acquired hypothyroidism Social History Tobacco Use Types [...] Associated Diagnosis Comments EXTERNAL LAB RESULTS Routine 11/25/2015 3:36 PM EST EXTERNAL LAB RESULTS Routine 11/25/2015 3:36 PM EST TSH Routine 11/25/2015 3:36 PM EST Acquired hypothyroidism documented in this encounter Results * External Lab Results (11/25/2015 3:36 PM EST) 11/25/2015 3:36 PM EST Tyson Vega MD CHEMISTRY ORDERABLES * (ABNORMAL) External Lab Results (11/25/2015 3:36 PM EST) Free T4 7.4(Dural Mechan[facility] al Lab) EXTERNAL LAB Comment:4.5-10.9 ug/dl Blood specimen (specimen) 11/25/2015 3:36 PM EST Tyson Vega MD CHEMISTRY ORDERABLES Performing Organization Address [facility] de Phone Number EXTERNAL LAB * (ABNORMAL) TSH (11/25/2015 3:36 PM EST) Thyroid Stimulating Hormone 17.10 EXTERNAL LAB Comment:0.35-5.5 uIU/mL Blood specimen (specimen) 11/25/2015 3:36 PM EST Tyson Vega MD CHEMISTRY ORDERABLES Performing Organization Address [facility] de Phone Number EXTERNAL LAB documented in this encounter Visit Diagnoses Diagnosis Acquired hypothyroidism Unspecified hypothyroidism documented in this encounter Care Teams Swimming Pool Servicer Relationship Specialty Start Date End Date Raza Lazar MD PCP - General 03/19/12 10/01/18 documented as of this encounter
--- OUTSIDE RECORDS SUMMARY | 2024-05-23 17:07 | XMS_ITS | Encounter Summary ---
Author Organization [facility] Address [facility] [place] [address] Care Team Providers Care Client Technologies Analyst Name Role Phone Raza Lazar MD Primary Care Provider [phone] Encounter Details Date Type Department Care Team (Latest Contact Info) Description 07/21/2017 10:30 AM EDT Office Visit [place] [address] Tyson Vega MD [facility] [place] [address] Acquired hypothyroidism Social History Tobacco Use Types Packs/Day Years Used Date Smoking Tobacco: Never Comments:no one smokes in ho use Sex and Gender Information Value Date Recorded Sex Assigned at Not on file Gender Identity Not on file Sexual Orientation Not on file documented as of this encounter Last Filed Vital Signs Vital Sign Reading Time Taken Comments Blood Pressure 121/67 07/21/2017 10:23 AM EDT Pulse 72 07/21/2017 10:23 AM EDT Temperature - - Respiratory Rate - - Oxygen Saturation - - Inhaled Oxygen Concentration - - Weight 54.5 kg (120 lb 2.4 oz) 07/21/20 17 10:23 AM EDT Height 170.3 cm (5' 7.05) 07/21/2017 1 0:23 AM EDT Body Mass Index 18.79 07/21/2017 10:23 AM EDT Body Mass Index Percentile 26.73% 07/21 10:23 AM EDT Growth Chart: CDC (Boys, 2-2 0 Years) documented in this encounter Progress Notes * Master Carrasco MD - 07/21/2017 10:30 AM EDT Subjective: Patient ID: Geraldine Blanton is a 16 y.o. male. PARKER Wood originally presented for consultation regarding hypothyroidism at the request of Dr. Cunningham. He was first evaluated in 2010, when he presented with premature adrenarche. We recommendeda conservative course and he's done quite well. He has experienced both height and weight gain since his last visit. Geraldine's older brother, Slick, and his father also have hypothyroidism. -no big changes reported. Reports a high energy level, no fatigue reported. No cold intolerance, reports a good appetite, mom reports that geraldine seems like he is eating more than ever before. No changes in the texture of his hair or skin, no constipation. -Taking 88 mcg levothyroxine each day. Responsible for taking it himself, feels like he has only missed 1-2 days over the last day -mom reports that he needs a new prescription, only has 4 days left -[facility] is where they get their blood drawn Social History: In 10th grade now. Playing golf and soccer in the fall, planning on skiing in the winter. Past Medical History, Surgical History, and Family [...] larger than normal, but has a bosselated texture., this exam finding remains similar to previous examinations) present. Cardiovascular: Normal rate and regular rhythm. No murmur heard. Pulmonary/Chest: Effort normal. He has no wheezes. Abdominal: Soft. He exhibits no mass. There is no tenderness. Musculoskeletal: He exhibits no edema. Lymphadenopathy: He has no cervical adenopathy. Neurological: He is alert. Skin: Skin is warm. No rash noted. Psychiatric: He has a normal mood and affect. His behavior is normal. BP 121/67 Pulse 72 Ht 170.3 cm (5' 7.05) Wt 54.5 kg (120 lb 2.4 oz) BMI 18.79 kg/m2 Assessment and Plan: Acquired hypothyroidism -Plan to do tsh today and adjust dose as needed -will need a refill, will be provided following tsh levels I personally evaluated the patient, and confirmed the physical findings and history recorded above by Dr. Carrasco. I developed the medical plan and discussed this with his mother. His TSH returned elevated. My clinical impression is that he has outgrown the dose of levothyroxine. I recommended increasing to 112 mcg and having a TSH in 6 weeks. documented in this encounter Miscellaneous Notes * Assessment & Plan Note - Master Carrasco MD - 07/21/2017 10:52 AM EDT Associated Problem(s): Acquired hypothyroidism -Plan to do tsh today and adjust dose as needed -will need a refill, will be provided following tsh levels documented in this encounter Plan of Treatment Not on file documented as of this encounter Procedures Procedure Name Priority Date/Time Associated Diagnosis Comments TSH Routine 07/21/2017 11:25 AM EDT Acquired hypothyroidism documented in this encounter Results * (ABNORMAL) TSH (07/21/2017 11:25 AM EDT) Thyroid Stimulating Hormone 18.20(H) 0.27 - 4.20 mlU/ML [facility] Blood specimen (specimen) 07/21/2017 11:25 AM EDT 07/21/2017 11:43 AM EDT Narrative Resulting Agency Comment Spec In Lab Tyson Vega MD [place] [address] documented in this encounter Visit Diagnoses Diagnosis Acquired hypothyroidism Unspecified hypothyroidism documented in this encounter Care Teams Client Technologies Analyst Relationship Specialty Start Date End Date Raza Lazar MD PCP - General 03/19/12 10/01/18 documented as of this encounter
--- OUTSIDE RECORDS SUMMARY | 2024-05-23 17:07 | XMS_ITS | Encounter Summary ---
Author Organization [facility] Address [facility] [place] [address] Care Team Providers Care Machine Heel Seat Fitter Name Role Phone Raza Lazar MD Primary Care Provider [phone] Encounter Details Date Type Department Care Team (Late st Contact Info) Description 07/21/2017 Telephone Pediatric [place] [address] Tyson Vega MD [facility] DR PEDIATRIC [place] [address] Social History Tobacco Use Types Packs/Day Years Used Date Smoking Tobacco: Never Comments:no one smokes in ho use Sex and Gender Information Value Date Recorded Sex Assigned at Not on file Gender Identity Not on file Sexual Orientation Not on file documented as of this encounter Miscellaneous Notes * Telephone Encounter - Tyson Vega MD - 07/21/2017 2:15 PM EDT TSH significantly elevated. Will increase levothyroxine to 112 mcg daily. New prescription sent. Needs TSH in 6 weeks. documented in this encounter Plan of Treatment Not on file documented as of this encounter Visit Diagnoses Diagnosis Acquired hypothyroidism Unspecified hypothyroidism documented in this encounter Care Teams Machine Heel Seat Fitter Relationship Specialty Start Date End Date Raza Lazar MD PCP - General 03/19/12 10/01/18 documented as of this encounter
--- OUTSIDE RECORDS SUMMARY | 2024-05-23 17:07 | XMS_ITS | Encounter Summary ---
Author Organization [facility] [address] Care Team Providers Care Clinical Account Specialist Name Role Phone Unknown Primary Care Provider Unavailabl e Encounter Details Date Type Department Care Team (Late st Contact Info) Description 08/09/2019 Telephone [place] [phone] Miladis Fuentes Social History Tobacco Use Types Packs/Day Years Used Date Smoking Tobacco: Never Smokeless Tobacco: Never Comments:no one smokes in ho use Sex and Gender Information Value Date Recorded Sex Assigned at Not on file Gender Identity Not on file Sexual Orientation Not on file documented as of this encounter Miscellaneous Notes * Telephone Encounter - Miladis Fuentes - 08/09/2019 4:43 PM EST RECALL REPORT DATE OF RECALL 08/14/[address] Vega PHONE CALL 08/09/2019 LETTERS SENT 07/15/2019 AND 08/09/2019 THANKS documented in this encounter Plan of Treatment Not on file documented as of this encounter Visit Diagnoses Not on filedocumented in this encounter Care Teams Clinical Account Specialist Relationship Specialty Start Date End Date Unknown None PCP - General 10/02/18 documented as of this encounter
--- OUTSIDE RECORDS SUMMARY | 2024-05-23 17:07 | XMS_ITS | Encounter Summary ---
[place] [address] Care Team Providers Care Trim Crew Supervisor Name Role Phone Raza Lazar MD Primary Care Provider Encounter Details Date Type Department Care Team (Late st Contact Info) Description 06/24/2016 Telephone [place] [phone] Viviane Armijo, RN Social History Tobacco Use Types Packs/Day Years Used Date Smoking Tobacco: Never Comments:no one smokes in ho use Sex and Gender Information Value Date Recorded Sex Assigned at Not on file Gender Identity Not on file Sexual Orientation Not on file documented as of this encounter Miscellaneous Notes * Telephone Encounter - Viviane Armijo RN - 06/24/2016 12:22 PM EDT Left message that labs are in range and no dose indicated. documented in this encounter Plan of Treatment Not on file documented as of this encounter Visit Diagnoses Not on filedocumented in this encounter Care Teams Trim Crew Supervisor Relationship Specialty Start Date End Date Raza Lazra MD PCP - General 03/19/12 10/01/18 documented as of this encounter
--- OUTSIDE RECORDS SUMMARY | 2024-05-23 17:07 | XMS_ITS | Encounter Summary ---
Author Organization [facility] Address [facility] [place] [address] Care Team Providers Care Undercover Agent Name Role Phone Unknown Primary Care Provider Unavailabl e Encounter Details Date Type Department Care Team (Late st Contact Info) Description 11/25/2018 Telephone [place] [address] Tyson Vega MD [facility] DR [place] [address] Social History Tobacco Use Types Packs/Day Years Used Date Smoking Tobacco: Never Smokeless Tobacco: Never Comments:no one smokes in ho use Sex and Gender Information Value Date Recorded Sex Assigned at Not on file Gender Identity Not on file Sexual Orientation Not on file documented as of this encounter Miscellaneous Notes * Telephone Encounter - Tyson Vega MD - 11/25/2018 1:28 PM EST TSH has improved, but is still elevated. I spoke to his mother and recommended an increase to 150 mcg daily. Prescription sent. Needs follow up TSH in 6 weeks. documented in this encounter Plan of Treatment Not on file documented as of this encounter Visit Diagnoses Diagnosis Acquired hypothyroidism Unspecified hypothyroidism documented in this encounter Care Teams Undercover Agent Relationship Specialty Start Date End Date Unknown None PCP - General 10/02/18 documented as of this encounter
--- OUTSIDE RECORDS SUMMARY | 2024-05-23 17:07 | XMS_ITS | Encounter Summary ---
Author Organization [facility] Address [facility] [place] [address] Care Team Providers Care Bid Analyst Name Role Phone Raza Lazar MD Primary Care Provider [phone] Reason for Visit * Reason Onset Date Comments Medication Refill 08/08/2018 Encounter Details Date Type Department Care Team (Late st Contact Info) Description 08/08/2018 Refill Pediatric [place] [address] Tyson Vega MD [facility] DR PEDIATRIC [place] [address] Acquired hypothyroidism Social History Tobacco Use Types Packs/Day Years Used Date Smoking Tobacco: Never Comments:no one smokes in ho use Sex and Gender Information Value Date Recorded Sex Assigned at Not on file Gender Identity Not on file Sexual Orientation Not on file documented as of this encounter Miscellaneous Notes * Telephone Encounter - Afia Means - 08/08/2018 9:03 AM EST Please call into [facility] in [place] [facility] to be [facility] documented in this encounter Plan of Treatment Not on file documented as of this encounter Visit Diagnoses Diagnosis Acquired hypothyroidism Unspecified hypothyroidism documented in this encounter Care Teams Bid Analyst Relationship Specialty Start Date End Date Raza Lazar MD PCP - General 03/19/12 10/01/18 documented as of this encounter
--- OUTSIDE RECORDS SUMMARY | 2024-05-23 17:07 | XMS_ITS | Encounter Summary ---
Author Organization [facility] [place] [address] Care Team Providers Care Predatory Animal Hunter Name Role Phone Raza Lazar MD Primary Care Provider [phone] Encounter Details Date Type Department Care Team (Late st Contact Info) Description 08/01/2018 Telephone [place] [phone] Luciana Buckley Social History Tobacco Use Types Packs/Day Years Used Date Smoking Tobacco: Never Comments:no one smokes in ho use Sex and Gender Information Value Date Recorded Sex Assigned at Not on file Gender Identity Not on file Sexual Orientation Not on file documented as of this encounter Miscellaneous Notes * Telephone Encounter - Luciana Isaac - 08/01/2018 3:01 PM EDT RECALL REPORT DATE OF RECALL 07/19/2018 DR. Vega PHONE CALL 07/13/2018 and 08/01/2018 LETTERS SENT 06/19/2018 and 08/01/2018 THANKS ?? documented in this encounter Plan of Treatment Not on file documented as of this encounter Visit Diagnoses Not on filedocumented in this encounter Care Teams Predatory Animal Hunter Relationship Specialty Start Date End Date Raza Lazar MD PCP - General 03/19/12 10/01/18 documented as of this encounter
--- OUTSIDE RECORDS SUMMARY | 2024-05-23 17:07 | XMS_ITS | Encounter Summary ---
Author [facility] [place] [address] Care Team Providers Care Sandwich Counter Attendant Name Role Phone Unknown Primary Care Provider Unavailabl e Encounter Details Date Type Department Care Team (Late st Contact Info) Description 02/06/2020 Telephone [place] [phone] Miladis Fuentes Social History Tobacco Use Types Packs/Day Years Used Date Smoking Tobacco: Never Smokeless Tobacco: Never Comments:no one smokes in ho use Sex and Gender Information Value Date Recorded Sex Assigned at Not on file Gender Identity Not on file Sexual Orientation Not on file documented as of this encounter Miscellaneous Notes * Telephone Encounter - Miladis Fuentes - 02/06/2020 12:25 PM EDT 02/05 and sent letter to call and schedule follow up appointment to be seen by Dr. Vega documented in this encounter Plan of Treatment Not on file documented as of this encounter Visit Diagnoses Not on filedocumented in this encounter Care Teams Sandwich Counter Attendant Relationship Specialty Start Date End Date Unknown None PCP - General 10/02/18 documented as of this encounter
--- OUTSIDE RECORDS SUMMARY | 2024-05-23 17:07 | XMS_ITS | Encounter Summary ---
Author Organization [facility] Address [facility] [place] [address] Care Team Providers Care Manager Operations And Procurement Name Role Phone Raza Lazar MD Primary Care Provider [phone] Encounter Details Date Type Department Care Team (Latest Contact Info) Description 03/19/2012 4:31 PM EDT - 03/19/2012 11:59 PM EDT Hospital Encounter XRay at [address] [place] [address] CLINIC, Tyson Jones MD [facility] [place] [address] Premature adrenarche Discharge Disposition: Home Social History [...] mouth daily. documented as of this encounter Progress Notes * Tess Burns APRN - 04/19/2012 2:15 PM EDTQuick Note: Bone age reviewed and there has been no accelerated advancement. Read as bone age 10-11 years, chronological age 10-4/12ths years, yielding final height around 68 inches. Left message on home answering machine. 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 Technique Single frontal view of the left hand. Findings The patient's chronological age is 11 years and 3 months. ??The patient's bone age based on the standards of Greulich and Kiara is in between the standards of a 10-year-old and an 11-year-old male. The standard deviation at this chronological age is 9.8 months. Impression The patient's bone age is approximately 11 years and 6 months Procedure Note Anum Rosado MD - 03/20/2012 Examination BONE AGE Clinical History Reason for exam and clinical history: 11 12/11 male with prematureadrenarche ; Comparison June 21, 2011. Technique Single frontal view of the left hand. Findings The patient's chronological age is 11 years and 3 months. The patient'sbone age based on the standards of Greulich and Kiara is in between thestandards of a 10-year-old and an 11-year-old male. The standard deviation at this chronological age is 9.8 months. 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
--- OUTSIDE RECORDS SUMMARY | 2024-05-23 17:08 | XMS_ITS | Encounter Summary ---
Author Organization [facility] Address [facility] [place] [address] Care Team Providers Care Clinical Data Manager Name Role Phone Angie Caal MD Primary Care Provider [phone] Encounter Details Date Type Department Care Team (Latest Contact Info) Description 06/21/2011 11:00 AM EDT - 06/21/2011 11:59 PM EDT Hospital Encounter XRay at [address] [place] [address] Premature adrenarche Social History Tobacco Use Types [...] as of this encounter Progress Notes * Tyson Vega MD - 07/14/2011 2:23 PM EDTQuick Note: I reviewed the radiograph and agree with the radiologist's reading of 11 years. That gives an adultheight prediction of 67.5 inches. documented in this encounter Plan of Treatment Not on file documented as of this encounter Procedures Procedure Name Priority Date/Time Associated Diagnosis Comments XR BONE AGE Routine 06/21/2011 11:10 AM EDT Precocious sexual development and puberty, not elsewhere classified documented in this encounter Results * XR BONE AGE (06/21/2011 11:10 AM EDT) Anatomical Region Laterality Modality N/A Radiographic Tete ging 06/21/2011 11:1 0 AM EDT Narrative 06/23/2011 8:19 AM EDT BONE AGE: ?? INDICATION: ??10 year 7 month male with precocious puberty. ??Estimate skeletal age. ?? TECHNIQUE: ??Single frontal view of the left hand. ?? COMPARISON: ??No priors for comparison. ?? FINDINGS: ??According to the standards of Greulich and Kiara, the left hand radiograph most closely resembles the male standard between 9 and 10 years. ?? The standard deviation of a 9-year-old male is 9.0 months. Procedure Note Marybel Childress MD - 06/23/2011 BONE AGE: INDICATION: 10 year 7 month male with precocious puberty. Estimateskeletal age. TECHNIQUE: Single frontal view of the left hand. COMPARISON: No priors for comparison. FINDINGS: According to the standards of Greulich and Kiara, the left hand radiograph most closely resembles the male standard between 9 and 10years. The standard deviation of a 9-year-old male is 9.0 months. 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
--- OUTSIDE RECORDS SUMMARY | 2024-05-23 17:08 | XMS_ITS | Referral Summary ---
Author Organization [facility] Address [address] [place] [address] Care Team Providers Care College Scouting Coordinator Name Role Phone Lisy Gutierrez NP Primary Care Provider [phone] Social History Tobacco Use Types Packs/Day Years Used Date Smoking Tobacco: Never Assessed Sex and Gender Information Value Date Recorded Sex Assigned at Not on file Gender Identity Not on file Sexual Orientation Not on file Plan of Treatment Not on file Care Teams College Scouting Coordinator Relationship Specialty Start Date End Date Lisy Gutierrez NP [address] [place] [address] [place] [phone] PCP - General 06/19/23
--- OUTSIDE RECORDS SUMMARY | 2024-05-23 17:08 | XMS_ITS | Encounter Summary ---
Author Organization [facility] Address [facility] [place] [address] Care Team Providers Care Soap Drier Operator Name Role Phone Raza Lazar MD Primary Care Provider [phone] Reason for Visit * Reason Comments Premature Adrenarche Encounter Details Date Type Department Care Team (Latest Contact Info) Description 03/19/2012 4:00 PM EDT Office Visit [place] [address] Ramon Cruz MD [facility] DR PEDIATR[place] [address] Premature adrenarche (Primary Dx) Discharge Disposition: Home [...] Sign Reading Time Taken Comments Blood Pressure 109/61 03/19/2012 3:52 PM EDT Pulse 64 03/19/2012 3:52 PM EDT Temperature - - Respiratory Rate 20 03/19/2012 3:52 PM EDT Oxygen Saturation - - Inhaled Oxygen Concentration - - Weight 36.5 kg (80 lb 6.4 oz) 03/19/2012 3:52 PM EDT Height 137.7 cm (4' 6.21) 03/19/2012 3:52 PM ED T Body Mass Index 19.23 03/19/2012 3:52 PM EDT Body Mass Index Percentile 82.29% 03/19/2012 3:5 2 PM EDT Growth Chart: CDC (Boys, 2-2 0 Years) documented in this encounter Progress Notes * Ramon Cruz MD - 03/19/2012 6:14 PM EDT Subjective: Patient ID: Israel Blanton is a 11 y.o. male. PARKER Wood is here with both parents for follow up of premature adrenarche with elevated adrenal androgens. 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 We recommended simple observation. In the interval, the parents have not noticed any progression in puberty but feel he has been more emotional/pinto. They have not noticed a growth spurt. He has adult body odor, but does not have axillary hair. General health remains excellent. Social history: Lives with both parents. Entering 5th-6th grade in the fall. Very active in golf, soccer, dirt-biking and outdoor sports. Review of Systems Constitutional: Negative. HENT: Negative. Eyes: Negative. Respiratory: Negative. Cardiovascular: Negative. Gastrointestinal: Negative. Genitourinary: Negative. Musculoskeletal: Negative. Skin: Negative. Neurological: Negative. Hematological: Negative. Psychiatric/Behavioral: Negative. Objective: Physical Exam Constitutional: He appears well-developed and well-nourished. No distress. HENT: Mouth/Throat: Oropharynx is clear. Eyes: Conjunctivae are normal. Neck: Thyroid normal. No adenopathy. Cardiovascular: Normal rate and regular rhythm. No murmur heard. Pulmonary/Chest: Effort normal and breath sounds normal. There is normal air entry. Abdominal: Soft. There is no hepatosplenomegaly. No tenderness. Genitourinary: Penis normal. Lenard 3 pubic hair, long dark and curly. Testicles 4 ml in volume, no abnormal masses. No phallic enlargement Musculoskeletal: He exhibits no edema. Neurological: He is alert. Skin: Skin is warm. No rash noted. BP 109/61 Pulse 64 Resp 20 Ht 137.7 cm (4' 6.21) Wt 36.469 kg (80 lb 6.4 oz) BMI 19.23 kg/m2 Assessment and Plan: Premature adrenarche - RAMON CRUZ MD 03/19/12 06:14 PM Addended While the adrenarche has progressed, Israel is [...] appropriate. We will plan to see him ag ain in 1 year. documented in this encounter Miscellaneous Notes * Communication Body - Ramon Cruz MD - 03/19/2012 6:14 PM EDT Subjective: Patient ID: Israel Blanton is a 11 y.o. male. HPI Israel is here with both parents for follow up of premature adrenarche with elevated adrenal androgens. 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 We recommended simple observation. In the interval, the parents have not noticed any progression in puberty but feel he has been more emotional/pinto. They have not noticed a growth spurt. He has adult body odor, but does not have axillary hair. General health remains excellent. Social history: Lives with both parents. Entering 5th-6th grade in the fall. Very active in golf, soccer, dirt-biking and outdoor sports. Review of Systems Constitutional: Negative. HENT: Negative. Eyes: Negative. Respiratory: Negative. Cardiovascular: Negative. Gastrointestinal: Negative. Genitourinary: Negative. Musculoskeletal: Negative. Skin: Negative. Neurological: Negative. Hematological: Negative. Psychiatric/Behavioral: Negative. Objective: Physical Exam Constitutional: He appears well-developed and well-nourished. No distress. HENT: Mouth/Throat: Oropharynx is clear. Eyes: Conjunctivae are normal. Neck: Thyroid normal. No adenopathy. Cardiovascular: Normal rate and regular rhythm. No murmur heard. Pulmonary/Chest: Effort normal and breath sounds normal. There is normal air entry. Abdominal: Soft. There is no hepatosplenomegaly. No tenderness. Genitourinary: Penis normal. Lenard 3 pubic hair, long dark and curly. Testicles 4 ml in volume, no abnormal masses. No phallic enlargement Musculoskeletal: He exhibits no edema. Neurological: He is alert. Skin: Skin is warm. No rash noted. BP 109/61 Pulse 64 Resp 20 Ht 137.7 cm (4' 6.21) Wt 36.469 kg (80 lb 6.4 oz) BMI 19.23 kg/m2 Assessment and Plan: Premature adrenarche - RAMON CRUZ MD 03/19/12 06:14 PM Addended While the adrenarche has progressed, Israel is [...] appropriate. We will plan to see him ag ain in 1 year. * Assessment & Plan Note - Ramon Cruz MD - 03/19/2012 6:08 PM EDT Associated Problem(s): Premature adrenarche (Resolved 09/19/2015) While the adrenarche has progressed, Isarel is not showing any signs of penile [...] appropriate. We will plan to see him ag ain in 1 year. documented in this encounter Plan of Treatment Not on file documented as of this encounter Visit Diagnoses Diagnosis Premature adrenarche- Primary Precocious sexual development and puberty, not elsewhere classified documented in this encounter Care Teams Soap Drier Operator Relationship Specialty Start Date End Date Raza Lazar MD PCP - General 03/19/12 10/01/18 documented as of this encounter
--- OUTSIDE RECORDS SUMMARY | 2024-05-23 17:08 | XMS_ITS | Encounter Summary ---
Author Organization [facility] Address [facility] [place] [address] Care Team Providers Care Plate Keeper Name Role Phone Angie Caal MD Primary Care Provider [phone]- [phone] Reason for Visit * Reason Comments Premature Adrenarche discuss test result s per parents Encounter Details Date Type Department Care Team (Latest Contact Info) Description 08/01/2011 11:00 AM EDT Office Visit Pediatric [place] [address] Tyson Vega MD [facility] [address] [place] [address] Premature adrenarche (Primary Dx) Discharge Disposition: Home Social History Tobacco Use Types Packs/Day Years Used Date Smoking Tobacco: Never Comments:no one smokes in ho use Sex and Gender Information Value Date Recorded Sex Assigned at Not on file Gender Identity Not on file Sexual Orientation Not on file documented as of this encounter Progress Notes * Tyson Vega MD - 08/21/2011 12:57 PM EST Today's visit was arranged with [place] parents to review the results of the recent ACTH stimulationtest. [place] presented with premature adrenarche and advanced bone age and also had evidence of testicular enlargement at his initial assessment. Because of high DHEAS-S. and normal 17 hydroxyprogesterone, we performed an ACTH stimulation test. This revealed baseline and stimulated elevations in 17hydroxypregneneolone and DHEA. Ratio of 17 hydroxypregneneolone to 17 hydroxyprogesterone, and DHEAto androstenedione were also elevated. 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 Since the block does not appear to be severe, it is unlikely that genetic testing would demonstrate a mutation in the enzyme. I explained to the parents that use of hydrocortisone would likely reduce the adrenal androgens andslow the progression of the pubertal changes but there are significant risks particularly those of adrenal suppression and so I do not think that is the best course of treatment for [place]. We discussed the fact that if central precocious puberty should progress rapidly, we could considerthe use of Lupron to halt progression. We also briefly discussed the fact that the aromatase inhibitors might be an option if there appears to be so much advancement in bone age that compromises his adult stature. I reviewed the radiographs and agree with the reading of 10 years, which yields an adult height prediction of 67.5 inches. At the conclusion of our discussion the parents agreed that we would follow his progression over the next 8 months and would hold off on any interventions at this point. It will be important to trackhis growth, pubertal progression, and bone age to ensure that he reaches his full height potential. This was a counseling dominated session lasted 30 minutes, 25 minutes of which was spent in [id number] counseling with the family. documented in this encounter Miscellaneous Notes * Communication Body - Tyson Vega MD - 08/21/2011 12:59 PM EST Today's visit was arranged with [place] parents to review the results of the recent ACTH stimulationtest. Israel presented with premature adrenarche and advanced bone age and also had evidence of testicular enlargement at his initial assessment. Because of high DHEAS-S. and normal 17 hydroxyprogesterone, we performed an ACTH stimulation test. This revealed baseline and stimulated elevations in 17hydroxypregneneolone and DHEA. Ratio of 17 hydroxypregneneolone to 17 hydroxyprogesterone, and DHEAto androstenedione were also elevated. 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 Since the block does not appear to be severe, it is unlikely that genetic testing would demonstrate a mutation in the enzyme. I explained to the parents that use of hydrocortisone would likely reduce the adrenal androgens andslow the progression of the pubertal changes but there are significant risks particularly those of adrenal suppression and so I do not think that is the best course of treatment for [place]. We discussed the fact that if central precocious puberty should progress rapidly, we could considerthe use of Lupron to halt progression. We also briefly discussed the fact that the aromatase inhibitors might be an option if there appears to be so much advancement in bone age that compromises his adult stature. I reviewed the radiographs and agree with the reading of 10 years, which yields an adult height prediction of 67.5 inches. At the conclusion of our discussion the parents agreed that we would follow his progression over the next 8 months and would hold off on any interventions at this point. It will be important to trackhis growth, pubertal progression, and bone age to ensure that he reaches his full height potential. This was a counseling dominated session lasted 30 minutes, 25 minutes of which was spent in [id number] counseling with the family. Today's visit was arranged with [place] parents to review the results of the recent ACTH stimulationtest. [place] presented with premature adrenarche and advanced bone age and also had evidence of testicular enlargement at his initial assessment. Because of high DHEAS-S. and normal 17 hydroxyprogesterone, we performed an ACTH stimulation test. This revealed baseline and stimulated elevations in 17hydroxypregneneolone and DHEA. Ratio of 17 hydroxypregneneolone to 17 hydroxyprogesterone, and DHEAto androstenedione were also elevated. 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 Since the block does not appear to be severe, it is unlikely that genetic testing would demonstrate a mutation in the enzyme. I explained to the parents that use of hydrocortisone would likely reduce the adrenal androgens andslow the progression of the pubertal changes but there are significant risks particularly those of adrenal suppression and so I do not think that is the best course of treatment for [place]. We discussed the fact that if central precocious puberty should progress rapidly, we could considerthe use of Lupron to halt progression. We also briefly discussed the fact that the aromatase inhibitors might be an option if there appears to be so much advancement in bone age that compromises his adult stature. I reviewed the radiographs and agree with the reading of 10 years, which yields an adult height prediction of 67.5 inches. At the conclusion of our discussion the parents agreed that we would follow his progression over the next 8 months and would hold off on any interventions at this point. It will be important to trackhis growth, pubertal progression, and bone age to ensure that he reaches his full height potential. This was a counseling dominated session lasted 30 minutes, 25 minutes of which was spent in [id number] counseling with the family. documented in this encounter Plan of Treatment Not on file documented as of this encounter Visit Diagnoses Diagnosis Premature adrenarche- Primary Precocious sexual development and puberty, not elsewhere classified documented in this encounter Care Teams Plate Keeper Relationship Specialty Start Date End Date Angie Caal MD [address] [place] [address] PCP - General 06/17/11 03/18/12 documented as of this encounter
--- OUTSIDE RECORDS SUMMARY | 2024-05-23 17:08 | XMS_ITS | Clinical Summary ---
Author Organization [facility] Address [address] [place] [address] Care Team Providers Care Corporate Operations Compliance Manager Name Role Phone Lisy Gutierrez NP Primary Care Provider [phone] Social History Tobacco Use Types Packs/Day Years Used Date Smoking Tobacco: Never Assessed Sex and Gender Information Value Date Recorded Sex Assigned at Not on file Gender Identity Not on file Sexual Orientation Not on file Plan of Treatment Health Maintenance Due Date Last Done Comments Hepatitis C Screen 2001 Hepatitis B Vaccine (1 of 3 - 19+ 3-dose series) 11/20 COVID-19 Vaccine (2022-24 season) 2023 Care Teams Corporate Operations Compliance Manager Relationship Specialty Start Date End Date Lisy Gutierrez NP [address] [place] [id number] PCP - General 06/19/23
--- OUTSIDE RECORDS SUMMARY | 2024-05-23 17:08 | XMS_ITS | Encounter Summary ---
Author Organization [facility] Address [facility] [place] [address] Care Team Providers Care Brake Repair Mechanic Name Role Phone Angie Caal MD Primary Care Provider [phone]- [phone] Reason for Visit * Reason Comments Premature Adrenarche Encounter Details Date Type Department Care Team (Latest Contact Info) Description 06/21/2011 10:00 AM EDT Office Visit [place] [address] Ramon Cruz MD [facility] DR PEDIATRIC [place] [address] Premature adrenarche (Primary Dx) Discharge Disposition: Home [...] Sign Reading Time Taken Comments Blood Pressure 93/58 06/21/2011 9:54 AM EDT Pulse 64 06/21/2011 9:54 AM EDT Temperature - - Respiratory Rate 18 06/21/2011 9:54 AM EDT Oxygen Saturation - - Inhaled Oxygen Concentration - - Weight 32.8 kg (72 lb 6.4 oz) 06/21/2011 9:54 AM EDT Height 133.2 cm (4' 4.44) 06/21/2011 9:54 AM ED T Body Mass Index 18.51 06/21/2011 9:54 AM EDT Body Mass Index Percentile 80.86% 06/21/2011 9:5 4 AM EDT Growth Chart: CDC (Boys, 2-2 0 Years) documented in this encounter Progress Notes * Ramon Cruz MD - 06/29/2011 7:52 AM EDT Subjective: Patient ID: Israel Blanton is a 10 y.o. male. HPI Israel is here with both parents for consultation regarding early pubic hair development and elevated adrenal androgens, at the request of Dr. Angie Caal. I reviewed the records from the PCP, the questionnaire completed by the family, and interviewed Israel and his parents. They noticed pubic hair development around 9 years of age, and mentioned this at his well child check in January of 2010. Evaluation at that time showed DHEA-S of 285 ug/dl ([facility] normal range provided), DHEA 2.5 ng/mL (Normal <3.4), 17 hydroxyprogesterone <40, Testosterone 24 and a bone age was read as equal to chronalogic age. The family was reassured, however the hair increased in density over the pastyear and he developed adult body odor. He also has an oily complexion. Mom notes that his fingernails grow quickly. His linear growth has been steady along the 25th percentile. Dr. Caal saw him recently for his [facility], and obtained additional labs. DHEA-S Was 416 (Nl for Stage 3 puberty <15-312),DHEA 6.9 (No pubertal norms provided), Testosterone 41 ([facility]). Israel was subsequently referred to our clinic for further evaluation. Review of Systems Constitutional: Negative. HENT: Negative. [...] pubic hair, long dark and curly. Testicles 4-5 ml in volume, no abnormal masses. Musculoskeletal: He exhibits no edema. Neurological: He is alert. Skin: Skin is warm. No rash noted. 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 documented in this encounter Miscellaneous Notes * Communication Body - Ramon Cruz MD - 07/02/2011 9:33 AM EDT Subjective: Patient ID: Israel Blanton is a 10 y.o. male. HPI Israel is here with both parents for consultation regarding early pubic hair development and elevated adrenal androgens, at the request of Dr. Angie Caal. I reviewed the records from the PCP, the questionnaire completed by the family, and interviewed Israel and his parents. They noticed pubic hair development around 9 years of age, and mentioned this at his well child check in January of 2010. Evaluation at that time showed DHEA-S of 285 ug/dl ([facility] normal range provided), DHEA 2.5 ng/mL (Normal <3.4), 17 hydroxyprogesterone <40, Testosterone 24 and a bone age was read as equal to chronalogic age. The family was reassured, however the hair increased in density over the pastyear and he developed adult body odor. He also has an oily complexion. Mom notes that his fingernails grow quickly. His linear growth has been steady along the 25th percentile. Dr. Caal saw him recently for his C, and obtained additional labs. DHEA-S Was 416 (Nl for Stage 3 puberty <15-312),DHEA 6.9 (No pubertal norms provided), Testosterone 41 ([facility]). Israel was subsequently referred to our clinic for further evaluation. Review of Systems Constitutional: Negative. HENT: Negative. [...] pubic hair, long dark and curly. Testicles 4-5 ml in volume, no abnormal masses. Musculoskeletal: He exhibits no edema. Neurological: He is alert. Skin: Skin is warm. No rash noted. 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 * Assessment & Plan Note - Ramon Cruz MD - 06/29/2011 7:35 AM EDT Associated Problem(s): Premature adrenarche (Resolved 09/19/2015) Premature adrenarche is quite common and is [...] to gauge the change in skeletal maturation. documented in this encounter Plan of Treatment Not on file documented as of this encounter Visit Diagnoses Diagnosis Premature adrenarche- Primary Precocious sexual development and puberty, not elsewhere classified documented in this encounter Care Teams Brake Repair Mechanic Relationship Specialty Start Date End Date Angie Caal MD [address] [place] [address] PCP - General 06/17/11 03/18/12 documented as of this encounter
--- OUTSIDE RECORDS SUMMARY | 2024-05-23 17:08 | XMS_ITS | Encounter Summary ---
Author Organization [facility] Address [address] [place] [address] Care Team Providers Care Nurse'S Companion Name Role Phone Unknown, Provider Primary Care Provider Encounter Details Date Type Department Care Team (Late st Contact Info) Description 11/10/[address] [facility] - Main [address] [address] Tyson Vega MD [address] [place] [address] Social History Tobacco Use Types Packs/Day Years [...] Associated Diagnosis Comments TSH Routine 11/10/2018 10:58 EST documented in this encounter Results * (ABNORMAL) TSH (11/10/2018 10:58 EST) Pathologist [facility] THYROID STIM HORMONE - [facility] 6.26(H) 0.46 - 4.68 uIU/ml 11/10/2018 12:29 EST [facility] Comment: The results of this assay can be falsely lowered due to the consumption of Biotin. 11/10/2018 10:5 8 EST 11/10/2018 11:03 EST Narrative [facility] - 11/10/2018 12:29 EST Does PT Have a Latex Allergy? NO Tyson Vega MD CHEMISTRY & BLOOD GA S ORDERABLES [facility] documented in this encounter Visit Diagnoses Not on filedocumented in this encounter Care Teams Nurse'S Companion Relationship Specialty Start Date End Date Unknown, Provider, PCP - General 09/14/15 08/27/19 documented as of this encounter
--- OUTSIDE RECORDS SUMMARY | 2024-05-23 17:08 | XMS_ITS | Encounter Summary ---
Author Organization [facility] [place] [address] [address] Care Team Providers Care Lag Screwer Name Role Phone Angie Caal MD Primary Care Provider +1- [phone] Reason for Visit * Reason Comments Other Endocrine testing Encounter Details Date Type Department Care Team (Latest Contact Info) Description 06/29/2011 9:00 AM EDT Procedure visit [place] [address] Tess Burns APRN [facility] [place] [address] Precocious puberty (Primary Dx) Discharge Disposition: Home Social History Tobacco Use Types Packs/Day Years Used Date Smoking Tobacco: Never Comments:no one smokes in ho use Sex and Gender Information Value Date Recorded Sex Assigned at Not on file Gender Identity Not on file Sexual Orientation Not on file documented as of this encounter Last Filed Vital Signs Vital Sign Reading Time Taken Comments Blood Pressure 91/60 06/29/2011 8:57 AM EDT Pulse 58 06/29/2011 8:57 AM EDT Temperature - - Respiratory Rate 20 06/29/2011 8:57 AM EDT Oxygen Saturation - - Inhaled Oxygen Concentration - - Weight 33 kg (72 lb 12.8 oz) 06/29/2011 8:57 AM EDT Height 134.4 cm (4' 4.91) 06/29/2011 8:57 AM ED T Body Mass Index 18.28 06/29/2011 8:57 AM EDT Body Mass Index Percentile 78.53% 06/29/2011 8:5 7 AM EDT Growth Chart: [facility] (Boys, 2-2 0 Years) documented in this encounter Patient Instructions * Patient Instructions* Tess Burns APRN - 06/29/2011 10:34 AM EDT 1. Will call in one week with results. If you don't hear from our office by Monday, Jul documented in this encounter Progress Notes * Tess Burns APRN - 06/29/2011 9:49 AM EDT CORTROSYN STIMULATION TESTING HPI: Israel is a 10 y.o. 7 m.o. school-aged boy who is here for cortrosyn stimulation testing to rule out CAH (congenital adrenal hyperplasia). Accompanied by both parents and brother. NPO 06/28/11 7:30pm 0920am IV access obtained by myself, #24-gauge catheter placed right antecubital. Testing explainedto family. 0920am 0 mins ACTH, CAH profile 6 Given Cortrosyn 0.25mg IVP 1020am 60 mins CAH profile 6 Note: For low dose cortrosyn stimulation test 1. Get a 250cc bag of normal saline. 2. Remove 1cc and discard. 3. Add 1cc of Cortrosyn (Cortrosyn and diluent) to bag of saline. 4. Draw 1cc off the diluted normal saline bag and give IV push. documented in this encounter Plan of Treatment Not on file documented as of this encounter Procedures Procedure Name Priority Date/Time Associated Diagnosis Comments MISCELLANEOUS LAB REQUEST Routine 06/29/2011 1:04 PM EDT Precocious puberty MISCELLANEOUS LAB REQUEST Routine 06/29/2011 1:04 PM EDT [facility] SENDOUT Routine 06/29/2011 10:20 AM EDT [facility] SENDOUT Routine 06/29/2011 9:20 AM EDT ACTH-ESOTERIX Routine 06/29/2011 9:20 AM EDT documented in this encounter Results * Miscellaneous Lab request (06/29/2011 1:04 PM EDT) Label Request received in lab. ARIEL WHITE Blood specimen (specimen) 06/29/2011 1:04 PM EDT 06/29/2011 1:04 PM EDT Tyson Vega MD LAB SEND OUT ORDERAB LES Performing Organization Address [facility] Co de Phone Number [facility] * Miscellaneous Lab request (06/29/2011 1:04 PM EDT) Label Request received in lab. ARIEL WHITE Blood specimen (specimen) 06/29/2011 1:04 PM EDT 06/29/2011 1:04 PM EDT Tyson Vega MD LAB SEND OUT ORDERAB LES Performing Organization Address [facility] Co de Phone Number [facility] * MISC SENDOUT (06/29/2011 10:20 AM EDT) Misc Sendout See Note [facility] Comment: The ordered test is: ??CAH Profile 6 Performed by: [facility] ? [place], [place] The test result is: Please see scanned report in Chart Review under the Non-DH Laboratory Heading. Specimen of unknown material (specimen) 06/29/2011 10:20 AM EDT 06/29/2011 11:54 AM EDT Tess Burns APRN LAB SEND OUT ORDERAB LES Performing Organization Address [facility] Co de Phone Number [facility] * MISC SENDOUT (06/29/2011 9:20 AM EDT) Misc Sendout See Note [facility] Comment: The ordered test is: ??CAH Profile 6 Performed by: [facility] ? [place], [place] The test result is: Please see scanned report in Chart Review under the Non-DH Laboratory Heading. Specimen of unknown material (specimen) 06/29/2011 9:20 AM EDT 06/29/2011 10:31 AM EDT Tess Burns APRN LAB SEND OUT ORDERAB LES Performing Organization Address [facility]/ZIP Co de Phone Number [facility] * ACTH-[facility] (06/29/2011 9:20 AM EDT) Pathologist [facility] ACTH-Eso 20 6 - 48 pg/mL [facility] Comment: Test performed by [facility] [address] [place] [address], [facility] [place] ??[place] [address] Blood specimen (specimen) 06/29/2011 9:20 AM EDT 06/29/2011 10:31 AM EDT Tess Burns APRN CHEMISTRY ORDERABLES Performing Organization Address [facility] Co de Phone Number [facility] documented in this encounter Visit Diagnoses Diagnosis Precocious puberty- Primary Precocious sexual development and puberty, not elsewhere classified documented in this encounter Administered Medications Inactive Administered Medications - up to 3 most recent administrations Medication Order MAR Action Action Date Dose Rate Site cosyntropin (CORTROSYN) injection 0.25 mg 0.25 mg (0.17856 mg/kg/dose), Injection, ONCE, 1 dose, On Mon06/29/11 at 1030, Routine Given 06/29/2011 9:20 AM EDT 0.25 mg documented in this encounter Care Teams Lag Screwer Relationship Specialty Start Date End Date Angie Caal MD [address] [place] [address] PCP - General 06/17/11 03/18/12 documented as of this encounter
[2024-05-23 21:50] LABS: TSH 3.05 uIU/Ml (0.36-3.74)
[2024-05-27 12:16] LABS: Chlamydia Result Negative (Negative); GC Result Negative (Negative)
== END 2024-05-23 17:01 | disposition home or self-care (01) ==
LOC: NCHCN 17:00
PROVIDERS: PCP Family Medicine; Visit Provider Family Medicine
DX: E03.9 Hypothyroidism, unspecified (principal); Z11.3 Encounter for screening for infections with a predominantly sexual mode of transmission
CPT/HCPCS: 87491; 87591; 84443

== ENCOUNTER 2024-12-02 13:08 | Outpatient (REF) | payer OTHER, SELFPAY ==
[2024-12-03 11:37] LABS: GC Result Negative (Negative)
[2024-12-03 13:15] LABS: Chlamydia Result Positive (Negative)
== END 2024-12-02 13:09 | disposition home or self-care (01) ==
LOC: NCHCN 13:08
PROVIDERS: PCP Family Medicine; Visit Provider Family Medicine
DX: Z11.3 Encounter for screening for infections with a predominantly sexual mode of transmission (principal)
CPT/HCPCS: 87491; 87591

== ENCOUNTER 2025-04-17 21:30 | Outpatient (REF) | payer OTHER, SELFPAY ==
[2025-04-21 11:50] LABS: Chlamydia Result Negative (Negative); GC Result Negative (Negative)
== END 2025-04-17 21:31 | disposition home or self-care (01) ==
LOC: NCHCN 21:30
PROVIDERS: PCP Family Medicine; Visit Provider Physician Assistant
DX: Z11.3 Encounter for screening for infections with a predominantly sexual mode of transmission (principal)
CPT/HCPCS: 87491; 87591

== ENCOUNTER 2025-06-17 16:55 | Outpatient (REF) | payer OTHER, SELFPAY ==
[2025-06-17 21:44] LABS: TSH 10.78 uIU/mL (0.36-3.74)
[2025-06-18 19:28] LABS: HIV-1/2 Ag & Ab Screen Negative (Negative)
[2025-06-18 19:31] LABS: Hepatitis C Ab w Rflx HCV PCR Negative (Negative)
[2025-06-19 10:25] LABS: Syphilis Serology (RPR) Negative (Negative)
[2025-06-19 13:18] LABS: Chlamydia Result Negative (Negative); GC Result Negative (Negative)
== END 2025-06-17 16:56 | disposition home or self-care (01) ==
LOC: NCHCN 16:55
PROVIDERS: PCP Family Medicine; Visit Provider Family Medicine
DX: E03.9 Hypothyroidism, unspecified (principal); Z11.3 Encounter for screening for infections with a predominantly sexual mode of transmission
CPT/HCPCS: 86803; 87389; 87491; 87591; 84443; 86592